=== PATIENT | male | born 1975 | race Caucasian/White ===

== ENCOUNTER → 2018-03-22 | Outpatient (CLI) | payer OTHER, BC ==
--- NOTE | 2018-03-22 08:54 | US ---
EXAMINATION TYPE: US abdomen complete DATE OF EXAM: 03/22/2018 COMPARISON: NONE CLINICAL HISTORY: K76.89 Abnormal Liver Function. Abnormal labs. NPO. No surgeries. EXAM MEASUREMENTS: Liver Length: 18.4 cm Gallbladder Wall: 0.2 cm CHD: 0.4 cm Spleen: 10.1 cm Right Kidney: 11.1 x 5.3 x 5.2 cm Left Kidney: 10.1 x 5.0 x 5.1 cm Pancreas: Tail obscured by overlying bowel gas Liver: Enlarged and slightly hyperechoic Gallbladder: wnl Evidence for sonographic Beal's sign: neg CBD: Obscured by overlying bowel gas CHD: wnl Spleen: wnl Right Kidney: wnl Left Kidney: wnl Upper IVC: wnl Abd Aorta: wnl The intrahepatic portion of the IVC and proximal abdominal aorta are within normal limits. There is no evidence of cholelithiasis. Common bile duct is unremarkable. The visualized portions of the rosenbaum creas are homogenous. The spleen is unremarkable. Kidneys are symmetric and free of hydronephrosis. No renal lesions are seen. IMPRESSION: 1. The liver is mildly enlarged and hyperechoic which may indicate underlying fatty hepatic infiltrat ion. Correlate clinically.
== END | disposition home or self-care (01) ==
LOC: RADUSWWP 08:13
PROVIDERS: ATTEND Internal Medicine
DX: R16.0 Hepatomegaly, not elsewhere classified (principal)
CPT/HCPCS: 76700

== ENCOUNTER → 2020-07-19 | Outpatient (CLI) | payer OTHER, BC | END | disposition home or self-care (01) | LOC: LABPAT 10:44 | PROVIDERS: ATTEND Surgery | DX: Z01.818 Encounter for other preprocedural examination (principal); Z11.52 Encounter for screening for COVID-19 | CPT/HCPCS: 93005; U0003; C9803; U0005 ==

== ENCOUNTER 2020-07-27 09:43 | Day surgery (SDC) | payer OTHER, BC ==
[2020-07-22 15:38] VITALS: BMI 31.3
[~2020-07-27 09:43] MED LIST: DEXAMETHASONE SOD PHOSPHATE 4 MG/ML 1 ML VIAL IV ONE; HEPARIN SODIUM,PORCINE/PF 5,000 UNIT/0.5 ML SYRINGE SQ PRN; LACTATED RINGERS 1,000 ML IV SCH; MIDAZOLAM 2 MG/2 ML VIAL IV PRN; ONDANSETRON 4 MG/2 ML VIAL IVP ONE; SCOPOLAMINE 1.5MG/72HR PATCH TRANSDERM ONE
[2020-07-27 10:32] LABS: HCT 45.7 % (39.0-53.0); HGB 16.5 gm/dL (13.0-17.5); MCH 31.9 pg (25.0-35.0); MCHC 36.1 g/dL (31.0-37.0); MCV 88.4 fL (80.0-100.0); Mean Platelet Volume 7.4; Platelet Count 271 k/uL (150-450); RBC 5.17 m/uL (4.30-5.90); RDW 12.2 % (11.5-15.5); WBC 7.5 k/uL (3.8-10.6)
[2020-07-27] MEDS ORDERED: fentaNYL (PF) 50 MCG/ML 2 ML AMP IVP ONE (10:49)
[2020-07-27] MEDS ORDERED: MIDAZOLAM 2 MG/2 ML VIAL IVP ONE (10:49)
--- NOTE | 2020-07-27 11:16 | P.ANPRN ---
Procedure Note - Anesthesia - Nerve Block Performed Bilateral Erector Spinae Single Time Out Performed: Yes Date of Procedure: 07/27/20 Procedure Start Time: 10:51 Procedure Stop Time: 11:05 Location of Patient: PreOp Indication: Acute Post-Operative Pain, Requested by Surgeon Specifically requested for management of pain by DrCarlton: Mary Romero Sedation Type: Sedate with meaningful contact maintained Preparation: Sterile Prep Position: Sitting Catheter: None Needle Types: Pajunk Needle Gauge: 21 Ultrasound used to visualize needle placement: Yes Ultrasound used to observe medication spread: Yes Injectate: 0.5% Ropivacaine (see comment for volume) Blood Aspirated: No Pain Paresthesia on Injection Noted: No Resistance on Injection: Normal Image Stored and Saved: Yes Events: Uneventful and Well Tolerated (30 cc 0.25% Ropivacaine injected bilaterally)
[2020-07-27] MEDS ORDERED: SUCCINYLCHOLINE CHLORIDE 100 MG/5 ML SYR IV ONE (11:51)
[2020-07-27] MEDS ORDERED: GLYCOPYRROLATE 0.2 MG/ML 2 ML VIAL ONE (11:51)
[2020-07-27] MEDS ORDERED: ROPIVACAINE 5 MG/ML 30 ML VIAL ONE (11:51)
[2020-07-27] MEDS ORDERED: NEOSTIGMINE 1 MG/ML 10 ML VIAL ONE (11:51)
[2020-07-27] MEDS ORDERED: MIDAZOLAM 2 MG/2 ML VIAL ONE (11:51)
[2020-07-27] MEDS ORDERED: SODIUM CHLORIDE 0.9% (PF) 10 ML VIAL ONE (11:51)
[2020-07-27] MEDS ORDERED: PROPOFOL 10 MG/ML 20 ML VIAL IV ONE (11:51)
[2020-07-27] MEDS ORDERED: LIDOCAINE 1% INJ 10MG/ML (20 ML MDV) ONE (11:51)
[2020-07-27] MEDS ORDERED: KETOROLAC 15 MG/ML 1 ML VIAL ONE (11:51)
[2020-07-27] MEDS ORDERED: fentaNYL (PF) 50 MCG/ML 2 ML AMP ONE (11:51)
[2020-07-27] MEDS ORDERED: ROCURONIUM 10 MG/ML (5 ML VIAL) IV ONE (11:51)
[2020-07-27] MEDS ORDERED: LIDOCAINE 1%-EPI 1:100,000 20 ML VIAL SQ ONE ×2 (12:16)
[2020-07-27] MEDS ORDERED: LACTATED RINGERS 1,000 ML IV ONE ×2 (12:52→15:33)
--- NOTE | 2020-07-27 12:57 | P.OP ---
Date of Procedure: 07/27/20 Preoperative Diagnosis: Umbilical hernia Postoperative Diagnosis: Umbilical hernia Procedure(s) Performed: Robotic umbilical hernia repair with mesh placement Implants: Ventralight ST mesh with echo 2, 11 cm circular mesh Anesthesia: JUDY Surgeon: Mary Romero Pathology: none sent Condition: stable Disposition: same day Indications for Procedure: 45-year-old male presents for an elective umbilical hernia repair. He initially presented to the surgery clinic with complaints of pain around the umbilicus. On exam, he was found to have an umbilical hernia that was easily reducible. Patient has elected for robotic hernia repair. Risks, benefits and alternatives were provided to the patient. He did provide consent prior to attending the operating suite. Operative Findings: Umbilical hernia, 2 cm x 2 cm defect Description of Procedure: Patient was brought to the operating suite and placed in supine position. Gen. anesthesia with endotracheal intubation was performed as per anesthesia team. The right arm was tucked against the body and the footboard was applied. Patient was prepped and draped in regular sterile fashion. A timeout was performed to verify correct patient and correct procedure. The patient was confirmed received perioperative IV antibiotics, bilateral SCDs and 5000 units of subcutaneous heparin for DVT prophylaxis. A 5 mm incision was made along the left midaxillary line at [place] and the abdomen was entered under direct visualization using a Visiport. Pneumoperitoneum was achieved. The umbilical hernia was clearly visualized. It measured 2 x 2 centimeters. An additional 10 mm trocar was placed in the left lower abdomen and a 12 mm trocar was placed in the left midabdomen. The initial 5 mm trocar was upsized to an 8 mm trocar. The da Jorge L robot was then docked. The 30 robotic camera was used. A robotic prograsp and monopolar scissors were inserted through the 8 mm robotic trochars. Hernia defect contained preperitoneal fat. The falciform ligament was divided using monopolar scissors close to the anterior abdominal wall to create a landing zone for the mesh. A ventralight ST echo 2, 11 cm circular mesh was rolled and introduced into the abdominal cavity via the 12 mm trocar. The hernia defect was closed primarily with running sutures using Bovie laparotomy taking 1 cm bite on the fascia on either side of the defect. A Natanael Warner device was inserted through the umbilical hernia defect and stay suture in the mesh was grasped and elevated left against the anterior abdominal wall. The mesh was circumferentially sutured to the peritoneum of the anterior abdominal wall using 20V lock without any folds or kinks. The robot was then undocked. Left endoscopic 30 camera was reinserted. All trocar sites were examined. No evidence of bleeding. The 12 mm trocar site was closed using a trans-fascial suture of [address] using a Natanael Warner device under direct visualization. The pneumoperitoneum was evacuated and all the skin incisions were closed using 4-0 Monocryl followed by Dermabond skin glue. The sponge, instrument and needle count were correct 2. Abdominal binder was applied. The patient was extubated and taken to the postanesthesia care unit stable condition.
[2020-07-27 13:00] VITALS: TEMP 98.1
[2020-07-27] MEDS: HYDROmorphone 0.5 MG/0.5 ML SYRINGE IVP PRN ×4 (13:05→13:33)
[2020-07-27 14:19] VITALS: RESP 18
[2020-07-27 15:07] VITALS: BP 125/87; PULSE 70
[2020-07-27] MEDS ORDERED: HYDROcodone/APAP 5-325MG 1 EACH TAB ONE (15:16)
[2020-07-27] MEDS ORDERED: HYDROcodone/APAP 5-325MG 1 EACH TAB PO ONE (15:17)
[2020-07-27] MEDS ORDERED: ONDANSETRON 4 MG/2 ML VIAL ONE (15:28)
[2020-07-27] MEDS ORDERED: ONDANSETRON 4 MG/2 ML VIAL IVP ONE (15:29)
== END 2020-07-27 15:55 | disposition home or self-care (01) ==
LOC: OR 09:43
PROVIDERS: ATTEND Surgery
DX: K42.9 Umbilical hernia without obstruction or gangrene (principal); I10 Essential (primary) hypertension; Z79.899 Other long term (current) drug therapy; Z88.0 Allergy status to penicillin
CPT/HCPCS: 49652; S2900; 64999; 76942; 85027